=== PATIENT | female | born 1945 | race Caucasian/White ===

== ENCOUNTER 2016-10-15 10:06 | Emergency (ER) | payer OTHER ==
[2016-10-15 10:26] VITALS: BP 138/71; PULSE 90; RESP 16; TEMP 97.6; O2SAT 96
--- NOTE | 2016-10-15 11:36 | UCPHY ---
H & P Time Seen by Provider: 10/15/16 10:56 Patient Type: Established HPI/ROS: HPI Accidentally took veterinary medication. 71-year-old female by private vehicle with her . This patient reports that early this morning she accidentally took 1 dose of her dogs anti pruritus medication called Apoquel. She thought this was her thyroid medication. She has had 2 loose stools since this time. She denies any other complaints. ROS: Constitutional: No fever, no chills. No weakness. Respiratory: No cough. No shortness of breath. Cardiac: No chest pain, no palpitations. Gastrointestinal: No abdominal pain, no vomiting, as above. Musculoskeletal: No myalgias or arthralgias. Skin: No rashes. Neurological: No headache. Past medical history: Hip replacement, hypothyroidism. Social history: Here with her . Physical Exam: General Appearance: Alert, no distress. This patient is responding to questions appropriately and in full sentences. This patient appears well- hydrated and well-nourished. Neurological: Motor sensory function is grossly intact. Gait is normal. Skin: Warm and dry, no rashes. Extremities are symmetrical. All joints range without pain or impingement. Database: EKG: Imaging: Procedures: Emergency department course: Poison control contacted. Case discussed. No treatment or observation necessary according to poison Control for 1 time dose ingestion of this medication. This is a anti-inflammatory immune modulator. This was discussed with the patient. She does feel comfortable going home. Return to Urgent Care precautions discussed. All of her questions were answered. She was discharged in good condition with her . Differential Diagnosis: The differential diagnosis on this patient includes but is not limited to accidental veterinary medication ingestion. Anaphylaxis, anaphylactoid reaction unlikely. This represents a partial list of diagnoses considered. These considerations are based on history, physical exam, past history and reassessment. Smoking Status: Never smoked Constitutional: Initial Vital Signs Temperature (C) 36.4 C 10/15/16 10:19 Heart Rate 90 10/15/16 10:19 Respiratory Rate 16 10/15/16 10:19 Blood Pressure 138/71 H 10/15/16 10:19 O2 Sat (%) 96 10/15/16 10:19 O2 Delivery Mode Room Air Allergies/Adverse Reactions: No Known Allergies Allergy (Unverified 10/15/16 10:17) Home Medications: Medication Instructions Recorded DESIREE HO 10/15/16 MDM/Departure - Depart Disposition: Home, Routine, Self-Care Clinical Impression: Accidental drug ingestion Condition: Good Instructions: Acute Diarrhea (ED) Additional Instructions: Read and follow provided instructions. Return to the emergency department or urgent care for vomiting, abdominal pain, bloody stool, fever, difficulty breathing worsening symptoms or other serious concerns. Referrals: OUT OF STATE,. [Primary Care Provider] - As per Instructions - PQRS PQRS Measurement: 134: Depression screening and followup, PRIME MD-PHQ2 (12 years and older) Over the last 2 weeks, how often have you been bothered by any of the following problems? 1. Feeling down, depressed, or hopeless? 2. Little interest or pleasure in doing things? Answered no to both questions. 130: Documentation of medications. Reviewed all patient medications, doses, route and frequency. 226: Do you smoke? No. 47: 65 and older: Advanced care planning. Patient designates surrogate decision maker as spouse. 51: 18 years old and older with diagnosis of COPD, spirometry performance. NA 52: 18 years old and older with COPD and symptoms of COPD or FEV1<60% predicted prescribed a B Agonist. NA
== END 2016-10-15 11:45 | disposition home or self-care (01) ==
LOC: CED 10:06
DX: T49.1X Poisoning by, adverse effect of and underdosing of antipruritics (principal)
CPT/HCPCS: 99213-PO; G0463-PO